=== PATIENT | male | born 1945 | race Caucasian/White ===

== ENCOUNTER → 2017-07-28 | Outpatient (CLI) | payer MEDICARE, OTHER ==
[~2017-07-28] MED LIST: CELEBREX100 MG PO; COLESTID1 GM PO; FLOMAX0.4 MG PO; MULTI-VITAMIN1 EAC3 PO; NEXIUM20 MG PO; OSTEO BI-FLEX1 EAC1 PO; PROGESTERONE50 MG/ML IM; PROVENTIL HFA6.7 GM IH; TYLENOL PM EX-1 EACH PO; VITAMIN B-1100 MG PO
== END | disposition home or self-care (01) ==
LOC: CDC 12:23
DX: Z01.810 Encounter for preprocedural cardiovascular examination (principal); M25.561 Pain in right knee; M17.11 Unilateral primary osteoarthritis, right knee; R94.31 Abnormal electrocardiogram [ECG] [EKG]
CPT/HCPCS: 93000

== ENCOUNTER 2017-08-01 12:58 | Day surgery (SDC) | payer OTHER ==
[~2017-08-01] VITALS: Ht 172.7 cm; Wt 99.7 kg
[2017-08-01 13:34] VITALS: BP 115/68
[2017-08-01 17:25] VITALS: BP 108/63
[2017-08-01 18:18] VITALS: BP 112/67
[2017-08-01 19:32] VITALS: BP 134/77
== END 2017-08-01 19:41 | disposition home or self-care (01) ==
LOC: SDC
PROC: 0SBC4ZZ Excision of Right Knee Joint, Percutaneous Endoscopic Approach (ICD-10-PCS; principal; 2017-08-01)
PROC: 0SQC4ZZ Repair Right Knee Joint, Percutaneous Endoscopic Approach (ICD-10-PCS; principal; 2017-08-01)
DX: S83.271A Complex tear of lateral meniscus, current injury, right knee, initial encounter (principal); J45.909 Unspecified asthma, uncomplicated; M17.11 Unilateral primary osteoarthritis, right knee; K21.9 Gastro-esophageal reflux disease without esophagitis; Z87.891 Personal history of nicotine dependence; Z85.46 Personal history of malignant neoplasm of prostate; X50.1XXA Overexertion from prolonged static or awkward postures, initial encounter
CPT/HCPCS: J0171; J1885; J2250; J3010